=== PATIENT | female | born 1955 | race Caucasian/White ===

== ENCOUNTER → 2021-02-07 07:40 | Outpatient (CLI) | payer SELFPAY ==
--- NOTE | 2021-02-07 07:44 | US_ITS ---
STUDY: ULTRASOUND OF THE FEMALE PELVIS - COMPLETE REASON FOR EXAM: Female, 65 years old. PMB LMP: Patient is postmenopausal. TECHNIQUE: Transabdominal and Transvaginal TECHNICAL QUALITY: Adequate. COMPARISON: None. FINDINGS: The uterus is anteverted and is in a midline position. The uterus measures 7.2 cm x 2.9 cm x 4.2 cm. Normal uterine cervix. The endometrium measures 2.4 mm in thickness, and is hyperechoic. There is no demonstrated endometrial mass. Heterogeneous appearance of the uterus. Multiple small fibroids are seen. The largest measures 1.5 cm x 1.7 cm x 1.1 cm. Focal calcifications are seen in the lower uterine segment. I.U.D. - The patient does not have an I.U.D. The right ovary is visualized. The right ovary measures 1.6 cm x 1.4 cm x 1.2 cm. There is no right ovarian cyst or ovarian mass. There is no visualized right adnexal mass or complex lesion. There is normal arterial and normal venous vascularity. The left ovary is visualized. The left ovary measures 2.1 cm x 1 cm x 1.7 cm. There is no left ovarian cyst or ovarian mass. There is no visualized left adnexal mass or complex lesion. There is normal arterial and normal venous vascularity. There is no fluid in the cul-de-sac. The pre void volume of the bladder was 235 ml. US/Transvaginal Non- IMPRESSION: Fibroid uterus. Electronically Signed: Lucio Kaplan MD at 10:02 EDT , Service support ,
--- NOTE | 2021-02-07 07:44 | US_ITS ---
STUDY: ULTRASOUND OF THE FEMALE PELVIS - COMPLETE REASON FOR EXAM: Female, 65 years old. PMB LMP: Patient is postmenopausal. TECHNIQUE: Transabdominal and Transvaginal TECHNICAL QUALITY: Adequate. COMPARISON: None. FINDINGS: The uterus is anteverted and is in a midline position. The uterus measures 7.2 cm x 2.9 cm x 4.2 cm. Normal uterine cervix. The endometrium measures 2.4 mm in thickness, and is hyperechoic. There is no demonstrated endometrial mass. Heterogeneous appearance of the uterus. Multiple small fibroids are seen. The largest measures 1.5 cm x 1.7 cm x 1.1 cm. Focal calcifications are seen in the lower uterine segment. I.U.D. - The patient does not have an I.U.D. The right ovary is visualized. The right ovary measures 1.6 cm x 1.4 cm x 1.2 cm. There is no right ovarian cyst or ovarian mass. There is no visualized right adnexal mass or complex lesion. There is normal arterial and normal venous vascularity. The left ovary is visualized. The left ovary measures 2.1 cm x 1 cm x 1.7 cm. There is no left ovarian cyst or ovarian mass. There is no visualized left adnexal mass or complex lesion. There is normal arterial and normal venous vascularity. There is no fluid in the cul-de-sac. The pre void volume of the bladder was 235 ml. US/Pelvic (Non ) IMPRESSION: Fibroid uterus. Electronically Signed: Lucio Kaplan MD at 10:02 EDT , Service support ,
== END ==
PROVIDERS: PCP Family Medicine
DX: N95.0 Postmenopausal bleeding (principal)
CPT/HCPCS: 76830; 76856